=== PATIENT | female | born 1985 | race Caucasian/White ===

== ENCOUNTER 2019-09-06 16:29 | Observation (INO) | payer OTHER ==
[~2019-09-06] VITALS: Ht 165 cm; Wt 83.9 kg
[2019-09-06 16:50] VITALS: BP 124/71
[2019-09-06] MEDS ORDERED: PREN-217 PO (16:52)
== END 2019-09-06 18:45 | disposition home or self-care (01) ==
LOC: 4S 16:29
PROVIDERS: ADMIT Obstetrics & Gynecology; ATTEND Obstetrics & Gynecology
DX: Z03.818 Encounter for observation for suspected exposure to other biological agents ruled out (principal); O62.9 Abnormality of forces of labor, unspecified; Z3A.38 38 weeks gestation of pregnancy
CPT/HCPCS: 59025; 87635; G0378

== ENCOUNTER 2019-09-11 00:25 | Inpatient (IN) | payer OTHER ==
[~2019-09-11] VITALS: Ht 165.1 cm; Wt 85.3 kg
[~2019-09-11 00:25] MED LIST: PREN-217 PO
[2019-09-11] MEDS ORDERED: RINGERS SOLUTION,LACTATED 1,000 ML IV ONE ×2 (00:49→01:53)
[2019-09-11] MEDS ORDERED: OXYTOCIN 30 UNITS/LACT RINGERS 500 ML IV ONE ×2 (00:55→00:57)
[2019-09-11] MEDS ORDERED: RINGERS SOLUTION,LACTATED 1,000 ML IV SCH (00:57)
[2019-09-11] MEDS ORDERED: RINGERS SOLUTION,LACTATED 1,000 ML IV PRN (00:57)
[2019-09-11] MEDS ORDERED: CITRIC ACID/SODIUM CITRATE 30 ML SOLUTION UDCUP PO PRN (01:00)
[2019-09-11] MEDS ORDERED: METOCLOPRAMIDE HCL 5 MG/ML 2 ML VIAL IVP PRN (01:00)
[2019-09-11 01:01] VITALS: BP 116/67
[2019-09-11] MEDS ORDERED: LIDOCAINE/PF 1% 30 ML VIAL ONE (01:15)
[2019-09-11] MEDS ORDERED: LIDOCAINE/PF 1% 30 ML VIAL INJ PRN (01:45)
[2019-09-11] MEDS ORDERED: OxyCODONE HCL/ACETAMINOPHEN 5-325 MG TABLET PO PRN ×2 (02:00)
[2019-09-11] MEDS ORDERED: MEASLES/MUMPS/RUBELLA VACCINE, LIVE 0.5 ML/VIAL SQ ONE (02:00)
[2019-09-11] MEDS ORDERED: LANOLIN 7 GM OINTMENT TP PRN (02:00)
[2019-09-11] MEDS ORDERED: GLYCERIN/WITCH HAZEL LEAF 40 PADS JAR TP PRN (02:00)
[2019-09-11] MEDS ORDERED: BENZOCAINE 20%/MENTHOL 56 GM SPRAY CANISTER TP PRN (02:00)
[2019-09-11 03:22] LABS: BASOPHILS % (AUTO) 0.3 % (0.0-2.0); EOSINOPHILS % (AUTO) 0.1 % (1.0-6.0); HEMATOCRIT 36.2 % (36-46); HEMOGLOBIN 12.4 g/dL (12.0-16.0); LYMPHOCYTES # (AUTO) 0.8 K/uL (1.0-4.8); LYMPHOCYTES % (AUTO) 4.8 % (22.0-44.0); MEAN CORPUSCULAR HEMOGLOBIN 32.2 pg (26.0-34.0); MEAN CORPUSCULAR HGB CONC 34.3 G/dL (31.0-37.0); MEAN CORPUSCULAR VOLUME 94 fL (80-100); MONOCYTES # (AUTO) 0.4 K/uL (0.1-1.0); MONOCYTES % (AUTO) 2.7 % (2.0-9.0); NEUTROPHILS # (AUTO) 15.3 K/uL (1.8-7.7); PLATELET COUNT (AUTO)-OB 221 K/uL (150-450); RED BLOOD CELL COUNT(AUTO) 3.86 MIL/uL (4.00-5.20); RED CELL DISTRIBUTION WIDTH 13.7 % (11.5-14.5)
[2019-09-11 03:27] LABS: NEUTROPHILS % (AUTO) 92.1 % (40.0-70.0)
[2019-09-11] MEDS: IBUPROFEN 600 MG TABLET PO PRN ×3 (03:59→20:08)
[2019-09-11] MEDS ORDERED: OXYGEN THERAPY IH SCH (08:00)
[2019-09-11] MEDS: MAGNESIUM HYDROXIDE SUSPENSION 30 ML UDCUP PO SCH ×2 (08:47→21:00)
[2019-09-12] MEDS: IBUPROFEN 600 MG TABLET PO PRN (03:16)
[2019-09-12] MEDS: MAGNESIUM HYDROXIDE SUSPENSION 30 ML UDCUP PO SCH (07:21)
[2019-09-12] MEDS ORDERED: DOCU-275 PO (10:19)
[2019-09-12] MEDS ORDERED: IBUP-2071 PO (10:19)
== END 2019-09-12 11:00 | disposition home or self-care (01) | DRG 807 ==
LOC: OBSVTOIN 00:25 → 4S 00:25
PROVIDERS: ADMIT Obstetrics & Gynecology; ATTEND Obstetrics & Gynecology
PROC: 10E0XZZ Delivery of Products of Conception, External Approach (ICD-10-PCS; principal; 2019-09-11)
PROC: 0KQM0ZZ Repair Perineum Muscle, Open Approach (ICD-10-PCS; 2019-09-11)
DX: O70.1 Second degree perineal laceration during delivery (principal); Z37.0 Single live birth; Z3A.39 39 weeks gestation of pregnancy; Z20.828 Contact with and (suspected) exposure to other viral communicable diseases
CPT/HCPCS: J2590; J3490; J7120